=== PATIENT | female | born 1935 | race Caucasian/White ===

== ENCOUNTER 2024-03-03 18:52 | Emergency (ER) | payer MEDICARE, BC ==
[2024-03-03 19:12] VITALS: RESP 18
[2024-03-03] MEDS: MORPHINE SULFATE 4 MG/ML SYRINGE IM STA ×2 (20:00→22:05)
--- NOTE | 2024-03-03 20:16 | ED ---
Wound/Laceration HPI - General Chief Complaint: Wound/Laceration Stated Complaint: Lower left leg trauma Time Seen by Provider: 03/03/24 19:10 Source: patient, family, EMS, RN notes reviewed Mode of arrival: EMS - History of Present Illness Initial Comments: 88-year-old female presents emergency department via EMS for chief complaint of a fall. It was reported that patient was in a wheelchair at a family gathering when she attempted to step out of the wheelchair onto concrete steps use the restroom when her knees gave way and scraped the left ambrose. Patient denies hitting her head or loss conscious at the time of the injury. Patient denies blood thinner use. Currently endorsing pain over the anterior left ambrose. No other acute complaints at this time. Last tetanus vaccination was in the last 6 months. - Related Data Previous Rx's Medication Instructions Recorded Cephalexin [Keflex] 500 mg PO Q6HR #40 cap 03/03/24 Allergies Allergy/AdvReac Type Severity Reaction Status Date / Time No Known Allergies Allergy Verified 03/03/24 19:12 Review of Systems ROS Statement: Those systems with pertinent positive or pertinent negative responses have been documented in the HPI. ROS Other: All systems not noted in ROS Statement are negative. Past Medical History Past Medical History: Hypertension Additional Past Medical History / Comment(s): Neuropathy, home oxygen 3L continuous, uses walker History of Any Multi-Drug Resistant Organisms: None Reported Past Surgical History: Hysterectomy, Tonsillectomy Past Psychological History: No Psychological Hx Reported Smoking Status: Former smoker Past Alcohol Use History: None Reported Past Drug Use History: None Reported General Exam General appearance: alert, in no apparent distress Head exam: Present: atraumatic, normocephalic, normal inspection Neck exam: Present: normal inspection. Absent: tenderness, meningismus, lymphadenopathy Respiratory exam: Present: normal lung sounds bilaterally. Absent: respiratory distress, wheezes, rales, rhonchi, stridor Cardiovascular Exam: Present: regular rate, normal rhythm, normal heart sounds. Absent: systolic murmur, diastolic murmur, rubs, gallop, clicks GI/Abdominal exam: Present: soft, normal bowel sounds. Absent: distended, tenderness, guarding, rebound, rigid Left Lower Leg exam: Present: tenderness, abrasion (Large skin avulsion over the anterior ambrose, neurovascualry intact) Neurovascular tendon exam: Present: no vascular compromise Skin exam: Present: warm (see above description), dry, intact, normal color. Absent: rash Course Vital Signs 03/03/24 03/03/24 03/03/24 19:01 19:14 22:13 Temperature 98.7 F 98.5 F Pulse Rate 65 Respiratory 18 18 Rate Blood Pressure 142/58 138/60 O2 Sat by Pulse 99 95 Oximetry Procedures - Laceration Laceration #1 Consent Obtained: verbal consent Indication: laceration Site: lower extremity Size (cm): 35 Description: flap, avulsion Depth: simple, single layer Anesthetic Used: lidocaine 1%, with epi Anesthesia Technique: local infiltration Pre-repair: wound explored, irrigated extensively, wound margins revised Type of Sutures: nylon Size of Sutures: 4-0 Number of Sutures: 21 Technique: simple, interrupted Patient Tolerated Procedure: well, no complications Medical Decision Making - Medical Decision Making Was pt. sent in by a medical professional or institution (, PA, SUPERVISOR [employer]VAGE, urgent care, hospital, or fci...) When possible be specific @ -No Did you speak to anyone other than the patient for history (EMS, parent, family, police, friend...)? What history was obtained from this source @ -I spoke to the patient's daughter is at bedside states that the patient did not lose conscious at the time of this event and did not hit her head. Did you review nursing and triage notes (agree or disagree)? Why? @ -I reviewed and agree with nursing and triage notes Were old charts reviewed (outside hosp., previous admission, EMS record, old EKG, old radiological studies, urgent care reports/EKG's, fci records)? Report findings @ -No old charts were reviewed Differential Diagnosis (chest pain, altered mental status, abdominal pain women, abdominal pain men, vaginal bleeding, weakness, fever, dyspnea, syncope, headache, dizziness, GI bleed, back pain, seizure, CVA, palpatations, mental health, musculoskeletal)? @ -Fall, laceration, hematoma, skin avulsion, this list is not all inclusive EKG interpreted by me (3pts min.). @ -None X-rays interpreted by me (1pt min.). @ -None done CT interpreted by me (1pt min.). @ -None done U/S interpreted by me (1pt. min.). @ -None done What testing was considered but not performed or refused? (CT, X-rays, U/S, labs)? Why? @ -None What meds were considered but not given or refused? Why? @ -None Did you discuss the management of the patient with other professionals (professionals i.e. , PA, SUPERVISOR [employer], lab, RT, psych nurse, social media marketer, burn nurse, teacher, correctional officer chief, case management rn)? Give summary @ -No Was smoking cessation discussed for >3mins.? @ -No Was critical care preformed (if so, how long)? @ -No Were there social determinants of health that impacted care today? How? (Homelessness, low income, unemployed, alcoholism, drug addiction, transportation, low edu. Level, literacy, decrease access to med. care, [facility], rehab)? @ -No Was there de-escalation of care discussed even if they declined (Discuss DNR or withdrawal of care, Hospice)? DNR status @ -No What co-morbidities impacted this encounter? (DM, HTN, Smoking, COPD, CAD, Cancer, CVA, ARF, Chemo, Hep., AIDS, mental health diagnosis, sleep apnea, morbid obesity)? @ -None Was patient admitted / discharged? Hospital course, mention meds given and route, prescriptions, significant lab abnormalities, going to OR and other pertinent info. @ -Discharged. 88-year-old female with a fall. Patient arrived via EMS and has multiple bandages in place over the left lower extremity. Patient was evaluated and given morphine for pain medication. there is a large skin avulsion measuring approximately one foot by 6 inches. Area was thoroughly cleansed with sterile water and lidocaine with epi was used to anesthecize the and skin was stretched over open areas and 21 sutures were placed with 4-0 nylon to revise the wound margins. Patient was provided with dose of Rocephin and sent a prescription for Keflex. Patient does have previous history of following with software development specialist and recommend that family sets up an appointment with wound care next week for further evaluation. All questions answered at bedside and strict return precautions with the patient and patient's family verbalized understanding. Discussed with Dr. Gómez. Undiagnosed new problem with uncertain prognosis? @ -No Drug Therapy requiring intensive monitoring for toxicity (Heparin, Nitro, Insulin, Cardizem)? @ -No Were any procedures done? @ -No Diagnosis/symptom? @ -Skin avulsion, fall Acute, or Chronic, or Acute on Chronic? @ -Acute Uncomplicated (without systemic symptoms) or Complicated (systemic symptoms)? @ -Uncomplicated Side effects of treatment? @ -No Exacerbation, Progression, or Severe Exacerbation? @ -No Poses a threat to life or bodily function? How? (Chest pain, [place], [place], pneumonia, PE, COPD, DKA, ARF, appy, cholecystitis, CVA, Diverticulitis, Homicidal, Suicidal, threat to staff... and all critical care pts) @ -No Disposition Clinical Impression: Skin avulsion Disposition: HOME SELF-CARE Condition: Good Instructions (If sedation given, give patient instructions): Skin Avulsion (ED) Additional Instructions: Return to the emergency department for any new worsening symptoms. Complete full course of antibiotics as prescribed. Recommend that you follow-up with wound care next week for further evaluation. Prescriptions: Cephalexin [Keflex] 500 mg PO Q6HR #40 cap Is patient prescribed a controlled substance at d/c from ED?: No Referrals: None,Stated [Primary Care Provider] - 1-2 days Time of Disposition: 21:50
[2024-03-03] MEDS: LIDOCAINE 1%-EPI 1:100,000 20 ML VIAL SQ STA (20:35)
[2024-03-03] MEDS: DIPH,PERTUS(ACELL)TETVAC-LF 0.5 ML VIAL IM ONE (20:35)
[2024-03-03] MEDS: cefTRIAXone 1,000 MG VIAL (IM USE) IM STA (22:05)
[2024-03-03 22:17] VITALS: BP 138/60; PULSE 65; TEMP 98.5
== END 2024-03-03 22:49 | disposition home or self-care (01) ==
LOC: EC 18:52
DX: W19.XXXA Unspecified fall, initial encounter
CPT/HCPCS: 12007; 96372; 99283